=== PATIENT | female | born 1995 | race Caucasian/White ===

== ENCOUNTER 2020-09-24 17:56 | Emergency (ER) | payer BC ==
[~2020-09-24] VITALS: Ht 157.5 cm; Wt 69.0 kg
[2020-09-24 19:12] VITALS: BP 102/60
== END 2020-09-24 19:12 | disposition home or self-care (01) ==
LOC: M.ERS 17:56
DX: J02.9 Acute pharyngitis, unspecified (principal); Z20.822 Contact with and (suspected) exposure to COVID-19